=== PATIENT | female | born 1960 | race Caucasian/White ===

== ENCOUNTER 2019-01-25 15:42 | Emergency (ER) | payer MEDICARE, OTHER ==
[~2019-01-25] VITALS: Ht 157.5 cm; Wt 81.8 kg
[~2019-01-25 15:42] MED LIST: BUTA-245 PO; CIPR250S4 PO; DOCU100C34 PO; LISI10TA7 PO; METR250T PO; NIFE60TA71 PO; PARO10TA89 PO; TRAZ-186 PO
[2019-01-25 16:20] VITALS: BP 119/64
[2019-01-25] MEDS ORDERED: HYDROCODONE/ACETAMINOPHEN 10-325 MG TABLET PO ONE (17:30)
== END 2019-01-25 18:15 | disposition home or self-care (01) ==
LOC: EMS 15:45
DX: R51 Headache (principal); F12.90 Cannabis use, unspecified, uncomplicated; Z87.891 Personal history of nicotine dependence; F32.9 Major depressive disorder, single episode, unspecified; F41.9 Anxiety disorder, unspecified; Z86.73 Personal history of transient ischemic attack (TIA), and cerebral infarction without residual deficits; Z79.899 Other long term (current) drug therapy

== ENCOUNTER 2019-08-20 13:52 | Emergency (ER) | payer MEDICARE, OTHER ==
[~2019-08-20] VITALS: Ht 157.5 cm; Wt 77.3 kg
[~2019-08-20 13:52] MED LIST changes: -BUTA-245 PO; -CIPR250S4 PO; -DOCU100C34 PO; -METR250T PO
[2019-08-20] MEDS ORDERED: ATOR10TA84 PO (14:04)
[2019-08-20] MEDS ORDERED: BP MEDS PO (14:04)
[2019-08-20] MEDS ORDERED: HYDR-4455 PO (14:06)
[2019-08-20 14:44] LABS: BASOPHILS % (AUTO) 0.7 % (0.0-2.0); EOSINOPHILS % (AUTO) 0.7 % (1.0-6.0); HEMATOCRIT 41.6 % (36-46); LYMPHOCYTES # (AUTO) 3.7 K/uL (1.0-4.8); LYMPHOCYTES % (AUTO) 31.2 % (22.0-44.0); MEAN CORPUSCULAR HEMOGLOBIN 31.6 pg (26.0-34.0); MEAN CORPUSCULAR HGB CONC 33.7 G/dL (31.0-37.0); MEAN CORPUSCULAR VOLUME 94 fL (80-100); MONOCYTES # (AUTO) 0.5 K/uL (0.1-1.0); MONOCYTES % (AUTO) 4.6 % (2.0-9.0); NEUTROPHILS # (AUTO) 7.5 K/uL (1.8-7.7); NEUTROPHILS % (AUTO) 62.8 % (40.0-70.0); PLATELET COUNT (AUTO) 346 K/uL (150-450); RED BLOOD CELL COUNT(AUTO) 4.43 MIL/uL (4.00-5.20); RED CELL DISTRIBUTION WIDTH 12.7 % (11.5-14.5)
[2019-08-20 14:51] VITALS: BP 160/85
[2019-08-20 15:15] LABS: ANION GAP 18 mmol/L (8-16); CALCIUM, TOTAL 10.7 mg/dL (8.8-10.5); CARBON DIOXIDE 20 mmol/L (22-29); CHLORIDE 101 mmol/L (98-107); CREATININE 1.08 mg/dL (0.60-1.30); GLOMERULAR FILTR. RATE CALC 52 mL/min (>60); GLUCOSE,RANDOM 100 mg/dL (70-110); POTASSIUM 3.4 mmol/L (3.5-5.1); PROTHROMBIN TIME 10.7 SEC (9.4-11.6); SODIUM SERUM 139 mmol/L (136-145); UREA NITROGEN, BLOOD 15 mg/dL (7-18)
[2019-08-20 15:21] LABS: ALANINE AMINOTRANSFERASE 17 U/L (12-78); ALBUMIN 5.1 g/dL (3.4-5.0); ALKALINE PHOSPHATASE 72 U/L (46-116); ASPARTATE AMINOTRANSFERASE 23 U/L (15-37); BILIRUBIN,TOTAL 0.6 mg/dL (0.1-1.0); TOTAL PROTEIN, SERUM 8.5 g/dL (6.4-8.2)
[2019-08-20] MEDS ORDERED: DiphenhydrAMINE HCL 50 MG/ML VIAL IVP STA (15:25)
[2019-08-20] MEDS ORDERED: METOCLOPRAMIDE HCL 5 MG/ML 2 ML VIAL IVP ONE (15:30)
[2019-08-20] MEDS ORDERED: ATOR40TA28 PO (15:32)
[2019-08-20] MEDS ORDERED: POTASSIUM CHLORIDE 20 MEQ ER TABLET PO ONE (16:00)
== END 2019-08-20 17:20 | disposition home or self-care (01) ==
LOC: EMS 13:53
DX: E87.6 Hypokalemia (principal); G89.29 Other chronic pain; R51 Headache; F11.20 Opioid dependence, uncomplicated; I10 Essential (primary) hypertension; K21.9 Gastro-esophageal reflux disease without esophagitis; F41.9 Anxiety disorder, unspecified; F32.9 Major depressive disorder, single episode, unspecified; F12.90 Cannabis use, unspecified, uncomplicated; Z87.891 Personal history of nicotine dependence; Z76.5 Malingerer [conscious simulation]; Z79.899 Other long term (current) drug therapy
CPT/HCPCS: 36415; 80053; 83880; 84484; 85025; 85610; 85730; 93005; 96374; 96375; 99285; G0480; J1200; J2765

== ENCOUNTER 2020-09-06 12:29 | Emergency (ER) | payer MEDICARE, MEDICAID ==
[~2020-09-06] VITALS: Ht 157.5 cm; Wt 74.5 kg
[~2020-09-06 12:29] MED LIST changes: +ATOR40TA28 PO; +BP MEDS PO; +HYDR-4455 PO; -LISI10TA7 PO; +NIFE-46 PO; -NIFE60TA71 PO
[2020-09-06] MEDS ORDERED: ASPI-728 PO (12:36)
[2020-09-06] MEDS ORDERED: TIZA4TAB5 PO (14:52)
[2020-09-06] MEDS ORDERED: PARO20TA24 PO (14:52)
[2020-09-06] MEDS ORDERED: ICOS1CAP PO (14:53)
[2020-09-06] MEDS ORDERED: METF-960 PO (14:53)
[2020-09-06] MEDS ORDERED: HYDR-4069 PO (14:53)
[2020-09-06 15:00] VITALS: BP 134/69
[2020-09-06] MEDS ORDERED: KETOROLAC TROMETHAMINE 30 MG/ML VIAL IM ONE (15:00)
== END 2020-09-06 15:20 | disposition home or self-care (01) ==
LOC: EMS 12:30
DX: S09.90XA Unspecified injury of head, initial encounter (principal); I10 Essential (primary) hypertension; E78.00 Pure hypercholesterolemia, unspecified; G43.009 Migraine without aura, not intractable, without status migrainosus; W22.8XXA Striking against or struck by other objects, initial encounter; Y93.89 Activity, other specified; Y92.89 Other specified places as the place of occurrence of the external cause; Y99.8 Other external cause status
CPT/HCPCS: 70450; 96372; 99284; J1885

== ENCOUNTER 2020-12-12 14:40 | Emergency (ER) | payer MEDICARE, MEDICAID ==
[~2020-12-12] VITALS: Ht 160 cm; Wt 81.8 kg
[~2020-12-12 14:40] MED LIST changes: +ASPI-728 PO; -BP MEDS PO; +HYDR-4069 PO; -HYDR-4455 PO; +ICOS1CAP PO; +METF-960 PO; +PARO-38 PO; -PARO10TA89 PO; +TIZA4TAB5 PO
[2020-12-12 14:42] VITALS: BP 135/75
== END 2020-12-12 15:01 | disposition home or self-care (01) ==
LOC: EMS 14:44
DX: R05 Cough (principal); I10 Essential (primary) hypertension; Z20.822 Contact with and (suspected) exposure to COVID-19
CPT/HCPCS: 99283; U0003

== ENCOUNTER 2021-01-04 16:26 | Emergency (ER) | payer MEDICARE, MEDICAID ==
[~2021-01-04] VITALS: Ht 157.5 cm; Wt 77.3 kg
[2021-01-04 16:33] VITALS: BP 117/71
== END 2021-01-04 18:09 | disposition left against medical advice (07) ==
LOC: EMS 16:26
DX: R05 Cough (principal); Z53.21 Procedure and treatment not carried out due to patient leaving prior to being seen by health care provider
CPT/HCPCS: 93005

== ENCOUNTER 2021-04-26 13:16 | Emergency (ER) | payer MEDICARE, MEDICAID ==
[~2021-04-26] VITALS: Ht 157.5 cm; Wt 76.4 kg
[~2021-04-26 13:16] MED LIST changes: +ASPI-1450 PO; -ASPI-728 PO
[2021-04-26 15:15] VITALS: BP 176/90
[2021-04-26] MEDS ORDERED: DiphenhydrAMINE HCL 25 MG CAPSULE PO ONE (15:15)
[2021-04-26] MEDS ORDERED: ACETAMINOPHEN 325 MG TABLET PO ONE (15:15)
[2021-04-26] MEDS ORDERED: METOCLOPRAMIDE HCL 10 MG TABLET PO ONE (15:15)
[2021-04-26] MEDS ORDERED: KETOROLAC TROMETHAMINE 30 MG/ML VIAL IM ONE (15:15)
== END 2021-04-26 16:32 | disposition home or self-care (01) ==
LOC: EMS 13:16
DX: I10 Essential (primary) hypertension (principal); F41.9 Anxiety disorder, unspecified; F32.9 Major depressive disorder, single episode, unspecified; K21.9 Gastro-esophageal reflux disease without esophagitis; E78.00 Pure hypercholesterolemia, unspecified; F12.90 Cannabis use, unspecified, uncomplicated; G43.909 Migraine, unspecified, not intractable, without status migrainosus; Z86.73 Personal history of transient ischemic attack (TIA), and cerebral infarction without residual deficits; Z79.82 Long term (current) use of aspirin; Z79.84 Long term (current) use of oral hypoglycemic drugs
CPT/HCPCS: 96372; 99284; J1885